=== PATIENT | male | born 1975 | race Hispanic/Latino ===

== ENCOUNTER → 2019-04-12 | Outpatient (CLI) | payer BC | LOC: LAB.O 10:40 | PROVIDERS: ATTEND Nurse Practitioner | DX: R03.0 Elevated blood-pressure reading, without diagnosis of hypertension (principal); R20.2 Paresthesia of skin; R53.83 Other fatigue; E66.8 Other obesity ==

== ENCOUNTER 2019-05-21 12:37 | Observation (INO) | payer BC ==
[2019-05-21] MEDS ORDERED: SODIUM CHLORIDE 0.9% 1000ML 2,000 ML IVS ONE (13:05)
[2019-05-21] MEDS ORDERED: ASPIRIN (CHEWABLE) 81 MG TAB PO ONE (13:05)
--- NOTE | 2019-05-21 13:08 | ED.PDOC ---
History of Present Illness - General Chief Complaint: Cardiovascular Problem Stated Complaint: palpitations Time Seen by Provider: 05/21/19 13:02 - History of Present Illness Initial Comments: 44 yo M PMH HTN Anxiety/Depression (denies hallucinations SI HI without suicide plan) presents to ED c/o palpitations that began this am. Denies fever chills nausea vomiting diarrhea chest pain sob diaphoresis. No change in diet rest bow el or bladder. Denies smoking admits occasional drinking no change in diet bowel or bladder symptoms disturbed rest last night. No other c/o today. Allergies/Adverse Reactions: Allergies NO KNOWN ALLERGY Allergy (Verified 05/21/19 12:55) Home Medications: Ambulatory Orders BuPROPion XL [Wellbutrin XL] 150 mg PO DAILY 05/21/19 Lisinopril 10 mg PO DAILY 05/21/19 Review of Systems - Review of Systems Constitutional: States: see HPI EENTM: States: see HPI Respiratory: States: see HPI Cardiology: States: palpitations Gastrointestinal/Abdominal: States: see HPI Genitourinary: States: see HPI Musculoskeletal: States: see HPI Skin: States: see HPI Neurological: States: anxiety Endocrine: States: no symptoms reported All other Systems: Reviewed and Negative Family Medical History - Family History Mother Family History: No Known Physical Exam - Physical Exam General Appearance: Anxious Eyes, Ears, Nose, Throat Exam: normal ENT inspection Neck: non-tender, full range of motion Respiratory: lungs clear, normal breath sounds Cardiovascular/Chest: tachycardia Gastrointestinal/Abdominal: non tender, soft Rectal Exam: deferred Extremity: normal range of motion 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 II-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 nml as tested Skin Exam: normal color Progress - Progress Progress: 05/21/19 13:09 A/P-Palpitations, Sinus Tachycardia-iv x 2 bolus 2 liters ekg cxr cbc cmp lipase trop urinalysis utox 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 pulse ox reassess - Results/Orders Results/Orders: EKG-non specific TW changes Sinus Tachycardia Laboratory Tests 05/21/19 05/21/19 05/21/19 13:01 13:09 13:09 WBC RBC Hgb Hct MCV MCH MCHC RDW Plt Count MPV Absolute Neuts (auto) Absolute Lymphs (auto) Absolute Monos (auto) Absolute Eos (auto) Absolute Basos (auto) Neutrophils % Lymphocytes % Monocytes % Eosinophils % Basophils % Sodium 141 Potassium 3.5 L Chloride 104 Carbon Dioxide 22 Anion Gap 18.5 H BUN 8 Creatinine 0.84 BUN/Creatinine Ratio 9.5 L Random Glucose 122 H Serum Osmolality 280.9 Calcium 9.1 Total Bilirubin 0.8 AST 36 ALT 75 H Alkaline Phosphatase 86 Troponin I < 0.02 B-Natriuretic Peptide 7.7 Serum Total Protein 8.1 Albumin 4.3 Globulin 3.8 H Albumin/Globulin Ratio 1.1 Lipase 37 Salicylates Urine Opiates Screen Acetaminophen Urine Barbiturates Ur Phencyclidine Scrn U Amphetamin/Meth Scrn U Benzodiazepines Scrn U Cocaine Metab Screen U Cannabinoids Screen Ethyl Alcohol 05/21/19 05/21/19 05/21/19 13:09 13:09 13:27 WBC 13.6 H RBC 6.22 H Hgb 16.7 Hct 49.6 MCV 79.9 L MCH 26.8 L MCHC 33.6 RDW 16.0 H Plt Count 183 MPV 9.0 Absolute Neuts (auto) 11.70 H Absolute Lymphs (auto) 1.30 Absolute Monos (auto) 0.50 Absolute Eos (auto) 0.00 Absolute Basos (auto) 0.10 Neutrophils % 86.1 H Lymphocytes % 9.4 L Monocytes % 3.7 Eosinophils % 0.0 L Basophils % 0.8 Sodium Potassium Chloride Carbon Dioxide Anion Gap BUN Creatinine BUN/Creatinine Ratio Random Glucose Serum Osmolality Calcium Total Bilirubin AST ALT Alkaline Phosphatase Troponin I B-Natriuretic Peptide Serum Total Protein Albumin Globulin Albumin/Globulin Ratio Lipase Salicylates Urine Opiates Screen Acetaminophen < 10.0 L Urine Barbiturates Ur Phencyclidine Scrn U Amphetamin/Meth Scrn U Benzodiazepines Scrn U Cocaine Metab Screen U Cannabinoids Screen Ethyl Alcohol < 5.40 05/21/19 14:18 WBC RBC Hgb Hct MCV MCH MCHC RDW Plt Count MPV Absolute Neuts (auto) Absolute Lymphs (auto) Absolute Monos (auto) Absolute Eos (auto) Absolute Basos (auto) Neutrophils % Lymphocytes % Monocytes % Eosinophils % Basophils % Sodium Potassium Chloride Carbon Dioxide Anion Gap BUN Creatinine BUN/Creatinine Ratio Random Glucose Serum Osmolality Calcium Total Bilirubin AST ALT Alkaline Phosphatase Troponin I B-Natriuretic Peptide Serum Total Protein Albumin Globulin Albumin/Globulin Ratio Lipase Salicylates Urine Opiates Screen Negative Acetaminophen Urine Barbiturates Negative Ur Phencyclidine Scrn Negative U Amphetamin/Meth Scrn Negative U Benzodiazepines Scrn Negative U Cocaine Metab Screen Negative U Cannabinoids Screen Negative Ethyl Alcohol Study: Single Frontal Radiograph of the Chest. Indication:palpitations Comparison: May 03, 2010 Impression: Cardiomegaly without failure. Lungs clear. No acute osseous abnormality. Electronically signed by: Justus Branch MD 05/21/2019 1:39 PM CDT Laboratory Tests 05/21/19 05/21/19 05/21/19 13:01 13:09 13:09 WBC RBC Hgb Hct MCV MCH MCHC RDW Plt Count MPV Absolute Neuts (auto) Absolute Lymphs (auto) Absolute Monos (auto) Absolute Eos (auto) Absolute Basos (auto) Neutrophils % Lymphocytes % Monocytes % Eosinophils % Basophils % Sodium 141 Potassium 3.5 L Chloride 104 Carbon Dioxide 22 Anion Gap 18.5 H BUN 8 Creatinine 0.84 BUN/Creatinine Ratio 9.5 L Random Glucose 122 H Serum Osmolality 280.9 Lactic Acid Calcium 9.1 Total Bilirubin 0.8 AST 36 ALT 75 H Alkaline Phosphatase 86 Troponin I < 0.02 B-Natriuretic Peptide 7.7 Serum Total Protein 8.1 Albumin 4.3 Globulin 3.8 H Albumin/Globulin Ratio 1.1 Lipase 37 Urine Color Urine Appearance Urine pH Ur Specific Kimberly Urine Protein Urine Glucose (UA) Urine Ketones Urine Blood Urine Nitrite Urine Bilirubin Urine Urobilinogen Ur Leukocyte Esterase Urine RBC Urine WBC Ur Epithelial Cells Urine Bacteria Salicylates Urine Opiates Screen Acetaminophen Urine Barbiturates Ur Phencyclidine Scrn U Amphetamin/Meth Scrn U Benzodiazepines Scrn U Cocaine Metab Screen U Cannabinoids Screen Ethyl Alcohol 05/21/19 05/21/19 05/21/19 13:09 13:09 13:09 WBC 13.6 H RBC 6.22 H Hgb 16.7 Hct 49.6 MCV 79.9 L MCH 26.8 L MCHC 33.6 RDW 16.0 H Plt Count 183 MPV 9.0 Absolute Neuts (auto) 11.70 H Absolute Lymphs (auto) 1.30 Absolute Monos (auto) 0.50 Absolute Eos (auto) 0.00 Absolute Basos (auto) 0.10 Neutrophils % 86.1 H Lymphocytes % 9.4 L Monocytes % 3.7 Eosinophils % 0.0 L Basophils % 0.8 Sodium Potassium Chloride Carbon Dioxide Anion Gap BUN Creatinine BUN/Creatinine Ratio Random Glucose Serum Osmolality Lactic Acid 2.2 Calcium Total Bilirubin AST ALT Alkaline Phosphatase Troponin I B-Natriuretic Peptide Serum Total Protein Albumin Globulin Albumin/Globulin Ratio Lipase Urine Color Urine Appearance Urine pH Ur Specific Kimberly Urine Protein Urine Glucose (UA) Urine Ketones Urine Blood Urine Nitrite Urine Bilirubin Urine Urobilinogen Ur Leukocyte Esterase Urine RBC Urine WBC Ur Epithelial Cells Urine Bacteria Salicylates Urine Opiates Screen Acetaminophen Urine Barbiturates Ur Phencyclidine Scrn U Amphetamin/Meth Scrn U Benzodiazepines Scrn U Cocaine Metab Screen U Cannabinoids Screen Ethyl Alcohol < 5.40 05/21/19 05/21/19 05/21/19 13:27 14:18 14:18 WBC RBC Hgb Hct MCV MCH MCHC RDW Plt Count MPV Absolute Neuts (auto) Absolute Lymphs (auto) Absolute Monos (auto) Absolute Eos (auto) Absolute Basos (auto) Neutrophils % Lymphocytes % Monocytes % Eosinophils % Basophils % Sodium Potassium Chloride Carbon Dioxide Anion Gap BUN Creatinine BUN/Creatinine Ratio Random Glucose Serum Osmolality Lactic Acid Calcium Total Bilirubin AST ALT Alkaline Phosphatase Troponin I B-Natriuretic Peptide Serum Total Protein Albumin Globulin Albumin/Globulin Ratio Lipase Urine Color Yellow Urine Appearance Clear Urine pH 7.0 Ur Specific Kimberly 1.015 Urine Protein Negative Urine Glucose (UA) Negative Urine Ketones Trace Urine Blood Trace-intact H Urine Nitrite Negative Urine Bilirubin Negative Urine Urobilinogen 0.2 Ur Leukocyte Esterase Negative Urine RBC 0-1 Urine WBC 0 Ur Epithelial Cells 0 Urine Bacteria 0 Salicylates Urine Opiates Screen Negative Acetaminophen < 10.0 L Urine Barbiturates Negative Ur Phencyclidine Scrn Negative U Amphetamin/Meth Scrn Negative U Benzodiazepines Scrn Negative U Cocaine Metab Screen Negative U Cannabinoids Screen Negative Ethyl Alcohol Departure - Departure Clinical Impression: Tachycardia, Lactic acidosis, Palpitations, Dehydration Time of Disposition: 19:18 Disposition: Admit Patient Condition: Fair Departure Forms: ED Discharge - Pt. Copy, Patient Portal Self Enrollment Instructions: DI for Chest Pain Referrals: Emma Jason FNP [Primary Care Provider] - 1-2 Weeks Home Medications: Ambulatory Orders BuPROPion XL [Wellbutrin XL] 150 mg PO DAILY 05/21/19 Lisinopril 10 mg PO DAILY 05/21/19 Decision To Admit - Decistion To Admit Decision to Admit Reason: Admit from ER Decision to Admit Date: 05/21/19 Decision to Admit Time: 19:17
[2019-05-21] MEDS ORDERED: ACETAMINOPHEN 500 MG TAB PO ONE (13:36)
--- NOTE | 2019-05-21 13:41 | RAD ---
Study: Single Frontal Radiograph of the Chest. Indication:palpitations Comparison: May 03, 2010 Impression: Cardiomegaly without failure. Lungs clear. No acute osseous abnormality. Electronically signed by: Justus Branch MD 05/21/2019 1:39 PM CDT
[2019-05-21] MEDS ORDERED: PIPERACILLIN/TAZOBACTAM 3.375 GM in SODIUM CHLORIDE 0.9% 100ML 100 ML IVPB ONE (15:28)
[2019-05-21] MEDS ORDERED: DOXYCYCLINE HYCLATE IV 100 MG in SODIUM CHLORIDE 0.9% 250ML 250 ML IVPB ONE (15:29)
[2019-05-21] MEDS ORDERED: PIPERACILLIN/TAZOBACTAM 3.375 GM VIAL IVPB ONE (15:30)
[2019-05-21] MEDS ORDERED: SODIUM CHLORIDE 0.9% 100ML 100 ML IVPB ONE (15:30)
[2019-05-21] MEDS ORDERED: SODIUM CHLORIDE 0.9% 1000ML 1,000 ML IVS ONE (15:38)
[2019-05-21] MEDS ORDERED: SODIUM CHLORIDE 0.9% 250ML 250 ML ONE (17:15)
[2019-05-21] MEDS ORDERED: DOXYCYCLINE HYCLATE IV 100 MG VIAL IVPB ONE (17:16)
[2019-05-21] MEDS ORDERED: ACETAMINOPHEN 325 MG TAB PO PRN (20:28)
[2019-05-21] MEDS ORDERED: SODIUM CHLORIDE 0.9% (FLUSH) 10 ML SYG IV PRN (20:28)
[2019-05-21] MEDS ORDERED: MORPHINE SULFATE INJ 10 MG/ML VIAL IV PRN (20:28)
[2019-05-21] MEDS ORDERED: NITROGLYCERIN 0.4 MG 25 EA TAB SL PRN (20:28)
[2019-05-21] MEDS ORDERED: IV SET AND CAP CHANGE INJ INJ SCH (20:30)
--- NOTE | 2019-05-21 20:37 | PCM.H&P ---
History of Present Illnes - History of Present Illness Reason for Visit: Chest pain History of Present Illness: 44 yo male who came with palpitations to the ER. States that started not feeling well on Monday, and even yesterday. He felt hot on Monday, so took a shower, but denies cough, N/V/D. He does have a history of HTN, and takes medication for this, but according to family at bedside, the BP is still suboptimal. Anyhow, when he came to the ER, his workup included EKG, CXR, and labs. He was noted to be in sinus tachycardia. He admits to drinking energy drinks such as Red Bull, and drank a large one on Monday and Monday, but not multiple ones. He was given fluids in the ER, and after about 3 liters, his HR dropped to 90s. He did have leukocytosis with left shift, but no history consistent with an infectious process. EKG without acute changes and troponin was negative x 2. He was referred for observation. - Past Medical History Cardiac: HTN Psych: Anxiety, Depression - Past Family History Family History: DM, Hypertension - Past Social History Smoke: No Alcohol: Occassional Drugs: None Lives: With Family Review of Systems - Review of Systems Constitutional: Denies: Fever, Chills, Sweats, Weakness, Malaise Eyes: Denies: Pain, Vision Change ENT: Denies: Ear Pain, Nose Discharge, Throat Pain Respiratory: Denies: Cough, Shortness of Breath, SOB with Excertion, Pleuritic Pain, Sputum, Wheezing Cardiovascular: States: Palpitations. Denies: Chest Pain, Edema Gastrointestinal: Denies: Nausea, Vomiting, Abdominal Pain, Diarrhea, Constipation Genitourinary: Denies: Dysuria, Frequency Musculoskeletal: Denies: Neck Pain, Shoulder Pain, Arm Pain, Back Pain Skin: Denies: Rash, Lesions Neurological: Denies: Weakness, Numbness, Change in Speech, Confusion, Seizures - Medications/Allergies Allergies/Adverse Reactions: Allergies Allergy/AdvReac Type Severity Reaction Status Date / Time NO KNOWN ALLERGY Allergy Verified 05/21/19 12:55 Medications: Current Medications Acetaminophen (Tylenol) 325 - 650 mg PO Q4H PRN PRN Reason: HEADACHE OR MILD PAIN Stop: 06/20/19 20:27 Aspirin (Aspirin) 325 mg PO DAILY [facility] Stop: 06/21/19 08:59 Morphine Sulfate () 1 - 5 mg IV Q30MIN PRN PRN Reason: CHEST PAIN Stop: 06/20/19 20:27 Nitroglycerin (Nitrostat) 1 ea SL Q5MIN PRN PRN Reason: CHEST PAIN Stop: 05/23/19 20:29 Sodium Chloride (Saline Flush Syringe) 3 ml IV BID KAMI Stop: 06/20/19 20:59 Sodium Chloride (Saline Flush Syringe) 3 ml IV PRN PRN PRN Reason: IV THERAPY Stop: 06/20/19 20:27 Exam - Exam Vital Signs: Vital Signs (72 hours) 05/21/19 05/21/19 05/21/19 13:04 14:00 15:00 Temperature 98.5 F Pulse Rate [ 135 H 113 H left brachial] Respiratory 17 20 24 Rate Blood Pressure 168/118 165/112 157/104 [left brachial] O2 Sat by Pulse 96 98 93 L Oximetry 05/21/19 05/21/19 05/21/19 16:00 17:00 19:24 Temperature 98.6 F Pulse Rate [ 116 H 106 H 94 H left brachial] Respiratory 20 20 20 Rate Blood Pressure 154/108 153/110 142/98 [left brachial] O2 Sat by Pulse 93 L 98 95 Oximetry 05/21/19 20:06 Temperature 97.2 F L Pulse Rate [ 92 H left brachial] Respiratory 20 Rate Blood Pressure 152/110 [left brachial] O2 Sat by Pulse 95 Oximetry General: Alert, Oriented x3, Cooperative HEENT: Atraumatic, PERRLA, EOMI Lungs: Clear to auscultation, Normal air movement Cardiovascular: Regular rate, Normal S1, Normal S2 Abdomen: Normal bowel sounds, Soft, No tenderness, No hepatospenomegaly Extremities: No edema, Normal pulses Skin: No rashes Neurological: Normal speech Psych/Mental Status: Mental status NL Assessment/Plan - Assessment/Plan Assessment: 1. Palpitations. 2. HTN, uncontrolled. 3. Leukocytosis, unclear cause. 4. Depression with anxiety. Plan: The patient will be placed in observation status with cardiac monitoring. Will complete 2 more sets of cardiac enzymes with EKGs. Will check another lactic acid level, and in the morning, check TSH, hemoglobin A1c, and lipid panel. He has been counseled on not drinking energy drinks, and due to his uncontrolled hypertension, we may need to add another medication to his regimen. If labs are okay, and remains stable overnight, he will likely go home tomorrow morning.
[2019-05-21] MEDS ORDERED: METOPROLOL TARTRATE 25 MG TAB ONE (21:05)
[2019-05-21] MEDS: LACTATED RINGERS 1,000 ML IVS PRN (21:18)
[2019-05-21] MEDS: SODIUM CHLORIDE 0.9% (FLUSH) 10 ML SYG IV SCH (21:22)
[2019-05-21] MEDS: METOPROLOL TARTRATE 25 MG TAB PO SCH (21:31)
[2019-05-22 05:55] VITALS: TEMP 98.1
[2019-05-22] MEDS: LACTATED RINGERS 1,000 ML IVS PRN (06:41)
[2019-05-22] MEDS ORDERED: METOPROLOL TARTRATE 25 MG TAB ONE (07:46)
[2019-05-22] MEDS ORDERED: LISINOPRIL 10 MG TAB ONE ×2 (07:46→08:50)
[2019-05-22] MEDS: METOPROLOL TARTRATE 25 MG TAB PO SCH (07:57)
[2019-05-22 08:04] VITALS: BP 153/100; O2SAT 97
[2019-05-22] MEDS: SODIUM CHLORIDE 0.9% (FLUSH) 10 ML SYG IV SCH (08:52)
[2019-05-22] MEDS ORDERED: ASPIRIN TABLET 325 MG TAB PO SCH (09:00)
[2019-05-22] MEDS ORDERED: Wellbutrin XL 150 MG TAB PO SCH (09:00)
[2019-05-22] MEDS ORDERED: LISINOPRIL 10 MG TAB PO SCH ×2 (09:00)
--- NOTE | 2019-05-22 14:26 | DS ---
SUPERVISING PHYSICIAN: Yosvany Chopra MD ADMISSION DIAGNOSIS: 1. Palpitations. 2. Hypertension, uncontrolled. 3. Leukocytosis of unclear cause. 4. Depression with anxiety. DISCHARGE DIAGNOSIS: 1. Palpitations. 2. Hypertension, uncontrolled. 3. Leukocytosis of unclear cause. 4. Depression with anxiety. HOSPITAL COURSE: This is a 44-year-old male who came to the Emergency Room with palpitations. He was apparently not feeling well Monday or Monday. He felt hot on Monday, so he took a shower, but denies any other symptoms. He does have a history of hypertension and takes lisinopril for this, but has been suboptimally controlled. When he came to the Emergency Room, he was quite tachycardic. EKG, chest x-ray and labs were done. He was given 3 liters of fluids and had an improvement in his heart rate. There were no troponin elevations. EKG was without acute changes. He did have some leukocytosis, but nothing consistent with an infectious process. He was placed on some IV fluids on the Floor. Cardiac monitoring did not reveal any other significant tachycardia episodes. Blood pressure was a little elevated and I did start him on some Lopressor for this. He will be discharged this morning in stable condition. He will followup with his primary care physician and utilizing not only the lisinopril that he takes on a daily basis, but now prescribed for Lopressor. He has been counseled to not drink energy drinks. #[id number] [facility]
== END 2019-05-22 09:00 | disposition home or self-care (01) ==
LOC: ER 12:37 → MS 20:00
PROVIDERS: ADMIT Nurse Practitioner; ATTEND Nurse Practitioner
DX: R00.2 Palpitations (principal); I11.9 Hypertensive heart disease without heart failure; D72.829 Elevated white blood cell count, unspecified; F41.8 Other specified anxiety disorders; R00.0 Tachycardia, unspecified; E87.2 Acidosis; E86.0 Dehydration; I44.4 Left anterior fascicular block; Z79.899 Other long term (current) drug therapy; Z82.49 Family history of ischemic heart disease and other diseases of the circulatory system; Z83.3 Family history of diabetes mellitus
CPT/HCPCS: 96361 ×2; 96366; 96367; 96365; J2543; J7030 ×2; J7050 ×2; J7120 ×2; 80048; 82553 ×3; 80329 ×2; 80053; 80307; 83036; 80061; 36415 ×2; 81001; 85025 ×2; 82550 ×2; 87040; 80320; 83690; 84443; 84484 ×4; 83880; 83605 ×2; 71045; 99285; 93005 ×3; 87502